=== PATIENT | female | born 1970 | race Caucasian/White ===

== ENCOUNTER → 2022-08-24 | Outpatient (CLI) | payer OTHER ==
--- NOTE | 2022-08-24 16:39 | MR ---
EXAMINATION TYPE: MR cervical spine wo con DATE OF EXAM: 08/24/2022 COMPARISON: None HISTORY: 52-year-old female M5 4.12 Neck pain, LUE radiculopathy, headaches x 2 yrs. No hx trauma. TECHNIQUE: Multiplanar, multisequence images of the cervical spine were acquired without contrast. FINDINGS: No craniocervical junction abnormality, predental space widening, or prevertebral soft tissue swellin g. Mild heterogeneous marrow signal without suspicious bone marrow replacement. Mild multilevel degenerative disc disease with a variable disc desiccation. More moderate changes fro m C5 through C7 levels with disc space narrowing and discussed by complex formation. Mild ligamentum flavum thickening also present at these levels. Multilevel hypertrophic facet and uncovertebral joint arthropathy is present. At C5-C6, disc osteophyte complexes contribute to a moderate focal spinal canal stenosis with AP neptali l dimension of 6.3 mm. There is flattening of both the dorsal and ventral cord here but no myelopathi c cord signal change. At C6-C7, similar changes are present with AP canal dimension of 5.6 mm again with flattening of both the dorsal and ventral cord but no myelopathic cord signal change. No significant spinal canal stenosis at other levels. At C2-C3, changes result in mild right neuroforaminal stenosis. At C3-C4, changes result in mild bilateral neural foraminal stenosis. At C4-C5, there is mild right neural foraminal stenosis. At C5-C6, changes result in moderate left greater than right neuroforaminal stenosis. At C6-C7, changes result in severe left and moderate right neuroforaminal stenosis. At C7-T1, changes result in mild right neural foraminal stenosis. Alignment is maintained. IMPRESSION: 1. Multilevel degenerative disc disease though more moderate from C5 through C7 levels where disc ost eophyte complexes contribute to at least moderate spinal canal stenosis. Changes result in flattening of both the dorsal and ventral aspect of the cord at these two levels but without myelopathic cord s ignal change at this time. 2. Additional hypertrophic facet and uncovertebral joint arthropathy throughout. Changes result in va riable mild and moderate neural foraminal stenoses as outlined above, though severe on the left at C6 -C7.
== END | disposition home or self-care (01) ==
LOC: RADMRIMAIN 07:06
PROVIDERS: ATTEND Physical Medicine & Rehabilitation
DX: M48.52XA Collapsed vertebra, not elsewhere classified, cervical region, initial encounter for fracture (principal); M50.122 Cervical disc disorder at C5-C6 level with radiculopathy; M25.78 Osteophyte, vertebrae; M48.02 Spinal stenosis, cervical region
CPT/HCPCS: 72141